=== PATIENT | male | born 1945 | race Caucasian/White ===

== ENCOUNTER → 2017-04-07 | Outpatient (CLI) | payer MEDICARE | END | disposition home or self-care (01) | LOC: CFH 11:56 | PROVIDERS: ATTEND Internal Medicine | DX: M25.552 Pain in left hip (principal); M25.551 Pain in right hip; Z13.220 Encounter for screening for lipoid disorders; Z12.5 Encounter for screening for malignant neoplasm of prostate; Z12.11 Encounter for screening for malignant neoplasm of colon; Z09 Encounter for follow-up examination after completed treatment for conditions other than malignant neoplasm; E78.1 Pure hyperglyceridemia; I10 Essential (primary) hypertension; I25.10 Atherosclerotic heart disease of native coronary artery without angina pectoris; M54.2 Cervicalgia; M54.6 Pain in thoracic spine; G89.18 Other acute postprocedural pain; R94.6 Abnormal results of thyroid function studies; R79.82 Elevated C-reactive protein (CRP); R53.82 Chronic fatigue, unspecified; G56.00 Carpal tunnel syndrome, unspecified upper limb; R09.02 Hypoxemia; K92.2 Gastrointestinal hemorrhage, unspecified; R79.9 Abnormal finding of blood chemistry, unspecified; Z98.890 Other specified postprocedural states; V89.2XXD Person injured in unspecified motor-vehicle accident, traffic, subsequent encounter | CPT/HCPCS: 73523 ==

== ENCOUNTER → 2017-09-07 | Outpatient (CLI) | payer MEDICARE ==
[~2017-09-07] MED LIST: REGADENOSON 0.4 MG/5 ML SYRINGE ONE
== END | disposition home or self-care (01) ==
LOC: RAD 07:14
PROVIDERS: ATTEND Internal Medicine
DX: I45.10 Unspecified right bundle-branch block (principal); R53.83 Other fatigue; E29.1 Testicular hypofunction; E78.1 Pure hyperglyceridemia; R01.1 Cardiac murmur, unspecified; I10 Essential (primary) hypertension; G89.29 Other chronic pain; R79.9 Abnormal finding of blood chemistry, unspecified; Z79.899 Other long term (current) drug therapy
CPT/HCPCS: 78452; 93017; A9502; J2785

== ENCOUNTER → 2017-12-14 | Outpatient (CLI) | payer MEDICARE | END | disposition home or self-care (01) | LOC: CVU 12:31 | PROVIDERS: ATTEND Nurse Practitioner Primary Care | DX: I70.293 Other atherosclerosis of native arteries of extremities, bilateral legs (principal) | CPT/HCPCS: 93922; 93925 ==